=== PATIENT | female | born 1950 | race Caucasian/White ===

== ENCOUNTER 2016-10-19 15:00 | Outpatient (RCR) | payer MEDICARE ==
[~2016-10-19 15:00] MED LIST: AFRICAN MANGO PO; ALFALFA PO; ASPIRIN 32325 MG/TAB PO; CELEXA10 MG PO; CHERATUSSIN AC120 ML PO; CHILDREN'S5 MG/5 M3 PO; CINNAMON500 MG PO; COCONUT OIL 1 ML1 ML PO; GARLIC PO; GREEN COFFEE BEAN PO; GUAIFENESIN DM118 ML; HAIRSKINNAILS PO; HCTZ12.5TAB PO; KRILL OIL 1,001 EAC1 PO; LORTAB 2.5/5001 TAB PO; LYRICA 100MG C100 M1 PO; LYRICA 150MG C150 MG PO; MEDROL 4MG DOSPA4 MG PO; MULTI VITAMINS1 TAB PO; MULTIPLE VITAMI1 T23 PO; NASONEX SPRAY17 GM NS; NATURAL POTASS595 MG PO; NEURONTIN300 MG/CAP PO; NORCO 325 MG-51 TAB PO; NORCO 325 MG-7.1 TAB PO; PERCOCET 325 MG1 TA2 PO; PHENERGAN 25 TA25 MG PO; PHENTERMINE15 MG PO; PRILOSEC 20MG20 MG PO; PRINZIDE 12.5 M1 TAB PO; PROAIR HFA0.09 MG/AC IH; RASPBERRY PO; RITE AID BIO2500 MCG PO; TYLENOL ARTHRI650 M1 PO; ULTRAM 50MG TAB50 MG PO; VENTOLIN0.09 MG IH; VITAMIN B COMPL1 T16 PO; VITAMINC500CH; ZITHROMAX 250M250 MG PO; ZOFRAN 4MG T4 MG/TAB PO; ZOFRAN8 MG PO; [UNRECOGNIZED DRUG - OTHER] PO
== END 2016-10-20 08:20 | disposition still patient (30) ==
LOC: MKS.ESL.PT 15:00
DX: M70.61 Trochanteric bursitis, right hip (principal); R53.1 Weakness; N81.84 Pelvic muscle wasting
CPT/HCPCS: G8978-GP; G8979-GP; G8980-GP

== ENCOUNTER → 2016-10-26 | Outpatient (CLI) | payer MEDICARE | LOC: MC.RAD 16:37 | DX: Z12.31 Encounter for screening mammogram for malignant neoplasm of breast (principal) ==

== ENCOUNTER 2017-03-20 14:15 | Outpatient (RCR) | payer OTHER | END 2017-03-21 | LOC: WSOT | DX: M65.4 Radial styloid tenosynovitis [de Quervain] (principal) ==

== ENCOUNTER 2017-04-08 07:51 | Emergency (ER) | payer MEDICARE ==
[~2017-04-08] VITALS: Ht 157.5 cm; Wt 72.7 kg
[~2017-04-08 07:51] MED LIST changes: -VITAMINC500CH; +VITAMINC500CH PO
[2017-04-08 07:53] VITALS: BP 145/64; PULSE 60; TEMP 98.2
[2017-04-08] MEDS ORDERED: FLUOCINOLONE ACE1 TU TP (08:34)
[2017-04-08] MEDS ORDERED: ATARAX 25MG25 MG/TAB PO (08:34)
== END 2017-04-08 09:05 | disposition home or self-care (01) ==
LOC: COL.ER 07:51
DX: H01.111 Allergic dermatitis of right upper eyelid (principal); H01.114 Allergic dermatitis of left upper eyelid

== ENCOUNTER 2017-04-12 14:15 | Outpatient (RCR) | payer OTHER ==
[~2017-04-12 14:15] MED LIST changes: +ATARAX 25MG25 MG/TAB PO; +FLUOCINOLONE ACE1 TU TP
== END 2017-06-21 | disposition home or self-care (01) ==
LOC: WSOT
DX: M65.4 Radial styloid tenosynovitis [de Quervain] (principal)

== ENCOUNTER 2017-05-15 14:15 | Outpatient (RCR) | payer MEDICARE | END 2017-06-19 10:59 | disposition home or self-care (01) | LOC: WSPT 14:15 | DX: M70.61 Trochanteric bursitis, right hip (principal) | CPT/HCPCS: G8978-GP; G8979-GP; G8980-GP ==

== ENCOUNTER → 2017-08-06 | Outpatient (CLI) | payer MEDICARE ==
[~2017-08-06] VITALS: Ht 157.5 cm; Wt 79.4 kg
[~2017-08-06] MED LIST changes: +VITAMIN B12 1541 TAB SL
[2017-08-06 14:18] VITALS: BP 122/68; PULSE 56
== END ==
LOC: LIGHT 14:06
DX: Z98.84 Bariatric surgery status (principal); Z68.32 Body mass index [BMI] 32.0-32.9, adult
CPT/HCPCS: G0463

== ENCOUNTER → 2017-09-06 | Outpatient (CLI) | payer MEDICARE ==
[~2017-09-06] VITALS: Ht 157.5 cm; Wt 79.8 kg
[2017-09-06 08:30] VITALS: BP 122/60; PULSE 60
== END ==
LOC: LIGHT 08:14
DX: E66.9 Obesity, unspecified (principal); Z68.32 Body mass index [BMI] 32.0-32.9, adult; Z71.3 Dietary counseling and surveillance; M79.7 Fibromyalgia
CPT/HCPCS: G0463

== ENCOUNTER → 2017-10-04 | Outpatient (CLI) | payer MEDICARE ==
[~2017-10-04] VITALS: Ht 157.5 cm; Wt 79.6 kg
[2017-10-04 13:33] VITALS: BP 130/64; PULSE 60
== END ==
LOC: LIGHT 13:13
DX: E66.9 Obesity, unspecified (principal); Z68.32 Body mass index [BMI] 32.0-32.9, adult; Z71.3 Dietary counseling and surveillance; M79.7 Fibromyalgia
CPT/HCPCS: G0463

== ENCOUNTER → 2017-11-08 | Outpatient (CLI) | payer MEDICARE ==
[~2017-11-08] VITALS: Ht 157.5 cm; Wt 80.3 kg
== END ==
LOC: LIGHT 12:59
DX: E66.9 Obesity, unspecified (principal); Z68.33 Body mass index [BMI] 33.0-33.9, adult; Z71.3 Dietary counseling and surveillance; M79.7 Fibromyalgia
CPT/HCPCS: G0463

== ENCOUNTER → 2017-12-06 | Outpatient (CLI) | payer MEDICARE ==
[~2017-12-06] VITALS: Ht 157.5 cm; Wt 80.7 kg
[~2017-12-06] MED LIST changes: +FASTIN30 MG PO
[2017-12-06 14:17] VITALS: BP 116/76; PULSE 69
== END ==
LOC: LIGHT 13:27
DX: M79.1 Myalgia (principal); I89.0 Lymphedema, not elsewhere classified; E66.9 Obesity, unspecified; Z68.32 Body mass index [BMI] 32.0-32.9, adult; Z71.3 Dietary counseling and surveillance
CPT/HCPCS: G0463

== ENCOUNTER → 2017-12-31 | Outpatient (CLI) | payer MEDICARE | LOC: MC.RAD 14:09 | DX: Z12.31 Encounter for screening mammogram for malignant neoplasm of breast (principal) ==

== ENCOUNTER → 2018-01-03 | Outpatient (CLI) | payer MEDICARE ==
[~2018-01-03] VITALS: Ht 157.5 cm; Wt 79.6 kg
[2018-01-03 10:31] VITALS: BP 110/70; PULSE 72
== END ==
LOC: LIGHT 08:13
DX: Z12.31 Encounter for screening mammogram for malignant neoplasm of breast (principal); M79.1 Myalgia; I89.0 Lymphedema, not elsewhere classified; E66.9 Obesity, unspecified; Z68.32 Body mass index [BMI] 32.0-32.9, adult; Z71.3 Dietary counseling and surveillance
CPT/HCPCS: G0463

== ENCOUNTER → 2018-02-07 | Outpatient (CLI) | payer MEDICARE ==
[~2018-02-07] VITALS: Ht 157.5 cm; Wt 82.1 kg
[2018-02-07 15:33] VITALS: BP 120/70; PULSE 71
== END ==
LOC: LIGHT 00:56
DX: M79.10 Myalgia, unspecified site (principal); I89.0 Lymphedema, not elsewhere classified; E66.9 Obesity, unspecified; Z68.33 Body mass index [BMI] 33.0-33.9, adult; Z71.3 Dietary counseling and surveillance
CPT/HCPCS: G0463

== ENCOUNTER → 2018-03-14 | Outpatient (CLI) | payer MEDICARE ==
[~2018-03-14] VITALS: Ht 706.1 cm; Wt 83.0 kg
[2018-03-14 15:15] VITALS: BP 140/78; PULSE 64
== END ==
LOC: LIGHT 11:11
DX: M79.10 Myalgia, unspecified site (principal); E66.9 Obesity, unspecified; Z68.33 Body mass index [BMI] 33.0-33.9, adult; Z71.3 Dietary counseling and surveillance
CPT/HCPCS: G0463

== ENCOUNTER → 2018-05-02 | Outpatient (CLI) | payer MEDICARE ==
[~2018-05-02] VITALS: Ht 157.5 cm; Wt 84.4 kg
[~2018-05-02] MED LIST changes: +NEURONTIN600 MG/TAB PO
[2018-05-02 14:41] VITALS: BP 122/76; PULSE 68
== END ==
LOC: LIGHT 04-18 15:06
DX: M79.7 Fibromyalgia (principal); E66.9 Obesity, unspecified; Z68.34 Body mass index [BMI] 34.0-34.9, adult; Z71.3 Dietary counseling and surveillance
CPT/HCPCS: G0463

== ENCOUNTER → 2019-03-27 | Outpatient (CLI) | payer MEDICARE ==
[~2019-03-27] VITALS: Ht 157.5 cm; Wt 86.6 kg
[~2019-03-27] MED LIST changes: +CYMBALTA 20MG20 MG PO
[2019-03-27 10:00] VITALS: BP 122/76; PULSE 72
== END ==
LOC: LIGHT 06-13 15:20
DX: M79.18 Myalgia, other site (principal); E66.9 Obesity, unspecified; Z68.38 Body mass index [BMI] 38.0-38.9, adult; Z71.3 Dietary counseling and surveillance
CPT/HCPCS: G0463

== ENCOUNTER → 2019-05-01 | Outpatient (CLI) | payer MEDICARE | LOC: MC.RAD 09:15 | DX: Z12.31 Encounter for screening mammogram for malignant neoplasm of breast (principal); Z80.3 Family history of malignant neoplasm of breast ==

== ENCOUNTER → 2019-06-05 | Outpatient (CLI) | payer MEDICARE ==
[~2019-06-05] VITALS: Ht 157.5 cm; Wt 86.9 kg
[~2019-06-05] MED LIST changes: +SAXENDA6 MG/ML SQ
[2019-06-05 09:26] VITALS: BP 124/74; PULSE 64
== END ==
LOC: LIGHT 08:56
DX: Z98.84 Bariatric surgery status (principal)
CPT/HCPCS: G0463

== ENCOUNTER → 2019-07-10 | Outpatient (CLI) | payer MEDICARE ==
[~2019-07-10] VITALS: Ht 157.5 cm; Wt 87.3 kg
[2019-07-10 09:53] VITALS: BP 124/80; PULSE 64
== END ==
LOC: LIGHT 09:47
DX: Z98.84 Bariatric surgery status (principal)
CPT/HCPCS: G0463

== ENCOUNTER → 2019-07-17 | Outpatient (CLI) | payer MEDICARE | LOC: LIGHT 08:49 | DX: Z98.84 Bariatric surgery status (principal) | CPT/HCPCS: G0463 ==

== ENCOUNTER → 2019-11-28 | Outpatient (CLI) | payer MEDICARE | LOC: ZCOL.LAB 15:13 | DX: Z20.828 Contact with and (suspected) exposure to other viral communicable diseases (principal) ==

== ENCOUNTER → 2020-09-23 | Outpatient (CLI) | payer MEDICARE | LOC: MC.RAD 11:18 | DX: Z12.31 Encounter for screening mammogram for malignant neoplasm of breast (principal) ==

== ENCOUNTER → 2021-08-31 | Outpatient (CLI) | payer MEDICARE | LOC: COL.RAD 13:15 | DX: M51.37 Other intervertebral disc degeneration, lumbosacral region (principal); M47.817 Spondylosis without myelopathy or radiculopathy, lumbosacral region; M48.07 Spinal stenosis, lumbosacral region; R32 Unspecified urinary incontinence ==